=== PATIENT | male | born 1950 | race African-American/Black ===

== ENCOUNTER → 2017-07-02 | Outpatient (CLI) | payer MEDICARE, MEDICAID ==
--- NOTE | 2017-07-02 12:47 | RADIOLOGY REPORT (SQ) ---
EXAM DESCRIPTION: CERV SP 4 OR 5 VIEWS COMPLETED DATE/TIME: 07/02/2017 11:23 am REASON FOR STUDY: CERVICALGIA (M54.2) M54.2 CERVICALGIA M54.5 LOW BACK PAIN COMPARISON: None. NUMBER OF VIEWS: Five views. TECHNIQUE: AP, lateral, obliques and odontoid radiographic images acquired of the cervical spine. LIMITATIONS: None. FINDINGS: MINERALIZATION: Normal. ALIGNMENT: There is slight reversal of the normal curve in the upper cervical spine. VERTEBRAE: Vertebral bodies of normal height. DISCS: Disc spaces are narrowed throughout the cervical spine. Anterior osteophytes are seen from C4 to C6. Small posterior osteophytes are present at C5. FORAMINA: No osteophytes or foraminal narrowing. LATERAL AND POSTERIOR ELEMENTS: Facets, lateral masses and spinous processes without significant find ings. HARDWARE: None in the spine. SOFT TISSUES: No masses or calcifications. Lung apices clear. OTHER: No other significant finding. IMPRESSION: 1. There is slight reversal of the normal cervical lordosis. 2. Multilevel degenerative disc disease and spondylosis. TECHNICAL DOCUMENTATION: JOB ID: [id number] [employer]- All Rights Reserved
--- NOTE | 2017-07-02 13:03 | RADIOLOGY REPORT (SQ) ---
EXAM DESCRIPTION: L SPINE WHOLE COMPLETED DATE/TIME: 07/02/2017 11:23 am REASON FOR STUDY: LOW BACK PAIN (M54.5) M54.2 CERVICALGIA M54.5 LOW BACK PAIN COMPARISON: None. NUMBER OF VIEWS: Five views including obliques. TECHNIQUE: AP, lateral, oblique, and sacral radiographic images acquired of the lumbar spine. LIMITATIONS: None. FINDINGS: MINERALIZATION: Normal. SEGMENTATION: Normal. No transitional anatomy. ALIGNMENT: Normal. VERTEBRAE: Maintained height. No fracture or worrisome bone lesion. DISCS: There is mild narrowing at L4-5 and there is narrowing at L5- S1. Marginal osteophytes are pr esent. POSTERIOR ELEMENTS: Hypertrophic facet changes are present at L5-S1. HARDWARE: None in the spine. PARASPINAL SOFT TISSUES: Normal. PELVIS: Intact as visualized. No fractures or worrisome bone lesions. SI joints intact. OTHER: No other significant finding. IMPRESSION: Degenerative disc disease, spondylosis, and facet arthropathy. TECHNICAL DOCUMENTATION: JOB ID: [id number] [employer]- All Rights Reserved
== END ==
LOC: RAD 10:29
PROVIDERS: ATTEND Family Medicine
DX: M54.2 Cervicalgia (principal); M54.5 Low back pain
CPT/HCPCS: 72050; 72110

== ENCOUNTER 2017-08-03 18:24 | Emergency (ER) | payer MEDICARE, MEDICAID ==
[2017-08-03] MEDS ORDERED: IBUPROFEN 800 MG TABLET PO ONE (18:50)
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
[2017-08-03 19:00] VITALS: BP 140/90
== END 2017-08-03 19:19 | disposition home or self-care (01) ==
LOC: ER 18:24
DX: M54.5 Low back pain (principal); M54.6 Pain in thoracic spine; M25.512 Pain in left shoulder; G89.29 Other chronic pain; F17.210 Nicotine dependence, cigarettes, uncomplicated
CPT/HCPCS: 99283; A9270

== ENCOUNTER 2017-11-28 10:31 | Emergency (ER) | payer MEDICARE, MEDICAID ==
[2017-11-28 10:41] VITALS: BP 148/96
[2017-11-28] MEDS ORDERED: IBUPROFEN 800 MG TABLET PO ONE (11:06)
--- NOTE | 2017-11-28 11:10 | ER Document Report ---
ED Extremity Problem, Lower - General Chief Complaint: Foot Pain Stated Complaint: TOE PAIN ON RIGHT FOOT Time Seen by Provider: 11/28/17 10:56 Mode of Arrival: Ambulatory Information source: Patient Notes: 67-year-old male presents to ED for complaint of right foot and toe pain. He has a corn on his great toe and his second toe of the right foot. Patient states he has had no injuries no changes he just has these corns that he would like cut off. I explained to the patient that we do not cut colons off in the emergency room. Also complained of low back pain that is chronic. TRAVEL OUTSIDE OF THE [place] IN LAST 30 DAYS: No - HPI Patient complains to provider of: Pain Location: Back, Great Toe, 2nd Toe Occurred: Other - Chronic Onset/Duration: Gradual - Chronic Quality of pain: Sharp Severity: Moderate Pain Level: 4 Context: Other - Corns on foot and chronic back pain Recent injury: No Associated symptoms: Painful ambulation Exacerbated by: Movement, Walking Relieved by: Nothing - Related Data Allergies/Adverse Reactions: No Known Allergies Allergy (Verified 08/03/17 18:28) Past Medical History - General Information source: Patient - Social History Smoking Status: Current Every Day Smoker Cigarette use (# per day): Yes - 5 cigarettes a day Chew tobacco use (# tins/day): No Smoking Education Provided: Yes - 4 minutes Frequency of alcohol use: Heavy - 2-3 drinks a day Drug Abuse: None Occupation: Disabled Lives with: Alone Family History: Reviewed & Not Pertinent, CAD, Hyperlipidemia, Hypertension. denies: None, Arthritis, COPD, CVA, DM, Malignancy, Thyroid Disfunction, Other Patient has suicidal ideation: No Patient has homicidal ideation: No - Past Medical History Cardiac Medical History: Reports: Hx Coronary Artery Disease, Hx Heart Attack - 2, Hx Hypercholesterolemia, Hx Hypertension Pulmonary Medical History: Reports: Hx Asthma, Hx COPD Neurological Medical History: Reports: None Endocrine Medical History: Reports: None Renal/ Medical History: Reports: None Malignancy Medical History: Reports None GI Medical History: Reports: Hx Gastroesophageal Reflux Disease Musculoskeltal Medical History: Reports Hx Arthritis - osteoarthritis pelvis and thigh, Reports Hx Musculoskeletal Deformity, Reports Hx Musculoskeletal Trauma Skin Medical History: Reports None Psychiatric Medical History: Reports: Hx Anxiety, Hx Depression Traumatic Medical History: Reports: None Infectious Medical History: Reports: None Surgical Hx: Negative Past Surgical History: Reports: Hx Cardiac Catheterization - stent placed ? May 2012, Hx Coronary Stent - Immunizations Immunizations up to date: No Hx Diphtheria, Pertussis, Tetanus Vaccination: Yes Review of Systems - Review of Systems Constitutional: No symptoms reported EENT: No symptoms reported Cardiovascular: No symptoms reported Respiratory: No symptoms reported Gastrointestinal: No symptoms reported Genitourinary: No symptoms reported Male Genitourinary: No symptoms reported Musculoskeletal: Back pain, Muscle pain, Muscle stiffness Skin: Other - Somis to right great toe and second toe Hematologic/Lymphatic: No symptoms reported Neurological/Psychological: No symptoms reported Physical Exam - Vital signs Vitals: Temp Pulse Resp BP Pulse Ox 97.7 F 76 16 148/96 H 97 11/28/17 10:40 11/28/17 10:40 11/28/17 10:40 11/28/17 10:40 11/28/17 10:40 Interpretation: Normal - General General appearance: Appears well, Alert - HEENT Head: Normocephalic, Atraumatic Eyes: Normal Pupils: PERRL - Respiratory Respiratory status: No respiratory distress Chest status: Nontender Breath sounds: Normal Chest palpation: Normal - Cardiovascular Rhythm: Regular Heart sounds: Normal auscultation Murmur: No - Abdominal Inspection: Normal Distension: No distension Bowel sounds: Normal Tenderness: Nontender Organomegaly: No organomegaly - Back Back: Normal, Tender. No: Deformity/step-off, CVA tenderness, Vertebra tenderness, Scars, Scoliosis, Wounds - Extremities General upper extremity: Normal inspection, Nontender, Normal color, Normal ROM , Normal temperature General lower extremity: Normal color, Normal ROM, Normal temperature, Normal weight bearing. No: Charlotte's sign Foot: Tender - Somis to great toe and second toe, No evidence of FB. No: Abrasion, Deformity, Ecchymosis, Edema, Instability, Laceration, Metatarsal compress. pain, Nail injury, Navicular tenderness, Puncture wound, Tender 5th metatarsal, Unable to bear weight - Neurological Neuro grossly intact: Yes Cognition: Normal Orientation: AAOx4 [place] Coma Scale Eye Opening: Spontaneous Rodrigo Coma Scale Verbal: Oriented [place] Coma Scale Motor: Obeys Commands Rodrigo Coma Scale Total: 15 Speech: Normal Motor strength normal: LUE, RUE, LLE, RLE Sensory: Normal - Psychological Associated symptoms: Normal affect, Normal mood - Skin Skin Temperature: Warm Skin Moisture: Dry Skin Color: Normal Course - Re-evaluation Re-evalutation: 11/28/17 21:18 Patient instructed to follow-up with a director product development or primary doctor that corns are not cut off in the emergency room. Patient was given instructions on corns and treatment that he can do at home. After performing a Medical Screening Examination, I estimate there is LOW risk for EXPANDING OR RUPTURED ABDOMINAL AORTIC ANEURYSM, CAUDA EQUINA SYNDROME, EPIDURAL MASS LESION, or HERNIATED DISK CAUSING SEVERE SPINAL STENOSIS, thus I consider the discharge disposition reasonable. I have reevaluated this patient multiple times and no significant life threatening changes are noted. The patient and I have discussed the diagnosis and risks, and we agree with discharging home and close follow-up. We also discussed returning to the Emergency Department immediately if new or worsening symptoms occur with the understanding that symptoms and presentations can change. We have discussed the symptoms which are most concerning (e.g., saddle anesthesia, urinary or bowel incontinence or retention, changing or worsening pain) that necessitate immediate return. - Vital Signs Vital signs: Temp Pulse Resp BP Pulse Ox 97.7 F 76 16 148/96 H 97 11/28/17 10:40 11/28/17 10:40 11/28/17 10:40 11/28/17 10:40 11/28/17 10:40 Discharge - Discharge Clinical Impression: Pain, foot, right, chronic Back pain, chronic Qualifiers: Back pain location: low back pain Back pain laterality: bilateral Sciatica presence: without sciatica Qualified Code(s): M54.5 - Low back pain Hypertension Qualifiers: Hypertension type: unspecified Qualified Code(s): I10 - Essential (primary) hypertension Condition: Stable Disposition: HOME, SELF-CARE Instructions: Family Physicians / Practices, Use of Hpoi-Woi-Mprlvxw Ibuprofen ([facility]) Additional Instructions: LOW BACK PAIN: Three out of every four people will have an episode of disabling back pain during their lifetime. Most commonly the pain is due to straining of the muscles and ligaments in the low back. Usual treatment includes: (1) Rest on a firm surface. Avoid lying on your stomach. (2) Ice pack the painful area. After a few days, gentle heat may be used intermittently to relax the area, or ice packs can be continued. (3) Medication may be needed -- muscle relaxers and antiinflammatory medicines are commonly used. (4) As the back improves, exercises are prescribed to strengthen the back and abdominal muscles. Your doctor will advise you on the proper care for your back at each stage in your recovery. You may be better in a few days -- or healing may take several weeks. If new symptoms of a "herniated disc" (radiation of pain, numbness, or tingling down the back of the leg or weakness in the leg) occur, you should be re-examined. Further testing may be necessary. You were seen today for corn on the second toe your right foot. We do not remove corns from toes in the emergency room. You will need to follow-up with a director product development for the foot a primary doctor for your general pain and a back specialist for your back pain. I will give you a list of the local doctors a director product development and a back specialist. Acetaminophen Acetaminophen may be taken for pain relief or fever control. It's much safer than aspirin, offering a wider range of "safe" dosages. It is safe during . Some brand names are Tylenol, Panadol, Datril, Anacin 3, Tempra, and Liquiprin. Acetaminophen can be repeated every four hours. The following are maximum recommended dosages: WEIGHT Dose Drops Elixir Chewable( 80mg) (LBS.) drprs=droppers tsp=teaspoon 6 40 mg .4 ml (1/2) 6-11 80 mg .8 ml (full) 1/2 tsp 1 tab 12-16 120 mg 1 1/2 drprs 3/4 tsp 1 1/2 tabs 17-23 160 mg 2 drprs 1 tsp 2 tabs 24-30 240 mg 3 drprs 1 1/2 tsp 3 tabs 30-35 320 mg 2 tsp 4 tabs 36-41 360 mg 2 1/4 tsp 4 1 /2 tabs 42-47 400 mg 2 1/2 tsp 5 tabs 48-53 480 mg 3 tsp 6 tabs 54-59 520 mg 3 1/4 tsp 6 1 /2 tabs 60-64 560 mg 3 1/2 tsp 7 tabs 65-70 600 mg 3 3/4 tsp 7 1 /2 tabs 71-76 640 mg 4 tsp 8 tabs 77-82 720 mg 4 1/2 tsp 9 tabs 83-88 800 mg 5 tsp 10 tabs >89 pounds or adults 650 mg to 900 mg Acetaminophen can be repeated every four hours. Maximum daily dose not to exceed 4000 mg. These maximum recommended dosages are slightly higher than the dosages written on the product container, but these dosages are very safe and well below the toxic dosage for acetaminophen. ICE PACKS: Apply ice packs frequently against the painful area. Many different schedules are recommended, such as "20 minutes on, 20 minutes off" or "one hour ice, two hours rest." If you need to work, you may need to go longer between ice treatments. You should plan to have the area ice packed AT LEAST one fourth of the time. The ice should be applied over the wrap, tape, or splint, or over a layer of cloth -- not directly against the skin. Some ice bags have a built-in cloth and can be put directly on the skin. WARM PACKS: After approximately two days, apply gentle heat (such as a heating pad or hot water bottle) for about 20 to 30 minutes about every two hours -- at least four times daily. Warmth and elevation will help you make a more rapid recovery , and will ease the pain considerably. Do not use HOT heat, and never apply heat for longer than 30 minutes. The continuous heat can invisibly damage skin and muscles -- even when no burn is seen on the surface. Damaged muscles can make you MORE sore. Stretching Exercises for the Back The physician has recommended that you begin stretching exercises for your back. These are often used even while the back is painful. However, you should notify the physician if the activities seem to increase your pain. PELVIC TILT: Lie flat on your back with knees bent. Tighten your stomach and buttock muscles so it flattens your lower back against the floor. Hold 10 seconds. Repeat 10 times, twice daily. KNEE RAISE: Lying on the back with knees bent, raise one knee to your chest, then the other. Hold both knees against the chest 10 seconds, then lower one knee at a time. Repeat 10 times, twice daily. PARTIAL TRUNK RAISE: Lie face down, arms at your sides. Keeping your waist on the floor, use your arms raise your chest up. Support yourself on your elbows for 30 seconds. Repeat twice daily, increasing the time to two minutes as you recover. FOLLOW-UP CARE: If you have been referred to a physician for follow-up care, call the physician s office for an appointment as you were instructed or within the next two days. If you experience worsening or a significant change in your symptoms, notify the physician immediately or return to the Emergency Department at any time for re-evaluation. Forms: Smoking Cessation Education, Elevated Blood Pressure Referrals: PATRICIA CROUCH DPM [ACTIVE STAFF] - Follow up as needed BERENICE ROSA MD [ASSOCIATE] - Follow up as needed
== END 2017-11-28 11:18 | disposition home or self-care (01) ==
LOC: ER 10:31
DX: G89.29 Other chronic pain (principal); M79.671 Pain in right foot; M54.5 Low back pain; F17.210 Nicotine dependence, cigarettes, uncomplicated; I25.10 Atherosclerotic heart disease of native coronary artery without angina pectoris; E78.00 Pure hypercholesterolemia, unspecified; I10 Essential (primary) hypertension; I25.2 Old myocardial infarction
CPT/HCPCS: 99406; 99283; A9270

== ENCOUNTER 2018-05-26 23:41 | Emergency (ER) | payer MEDICARE, MEDICAID | END 2018-05-27 01:50 | disposition left against medical advice (07) | LOC: ER 23:41 | DX: Z53.21 Procedure and treatment not carried out due to patient leaving prior to being seen by health care provider (principal) ==

== ENCOUNTER 2018-10-24 18:23 | Observation (INO) | payer MEDICARE, MEDICAID ==
[2018-10-24 18:45] LABS: ABSOLUTE LYMPHOCYTES (AUTO) 0.6 10^3/uL (0.5-4.7); ABSOLUTE MONOCYTES (AUTO) 0.8 10^3/uL (0.1-1.4); ABSOLUTE NEUT (AUTO) 2.6 10^3/uL (1.7-8.2); BASOPHILS % (AUTO) 0.6 % (0-2); EOSINOPHILS % (AUTO) 0.1 % (0-6); HEMATOCRIT 39.7 % (37.9-51.0); HEMOGLOBIN 13.7 g/dL (13.5-17.0); LYMPHOCYTES % (AUTO) 13.8 % (13-45); MEAN CORPUSCULAR HEMOGLOBIN 35.2 pg (27.0-33.4); MEAN CORPUSCULAR HGB CONC 34.5 g/dL (32.0-36.0); MEAN CORPUSCULAR VOLUME 102 fl (80-97); MONOCYTES % (AUTO) 19.4 % (3-13); PLATELET COUNT 212 10^3/uL (150-450); RED BLOOD COUNT 3.89 10^6/uL (4.35-5.55); RED CELL DISTRIBUTION WIDTH 13.3 % (11.5-14.0); SEGMENTED NEUTROPHILS % (AUTO) 66.1 % (42-78); TOTAL CELLS COUNTED % (AUTO) 100 %
[2018-10-24] MEDS ORDERED: NITROGLYCERIN 0.4 MG/TAB 25 TAB/BOTTLE SL PRN ×2 (18:56→20:11)
--- NOTE | 2018-10-24 18:56 | ER Document Report ---
ED General - General Chief Complaint: Chest Pain Stated Complaint: CHEST PAIN Time Seen by Provider: 10/24/18 18:30 TRAVEL OUTSIDE OF THE [place] IN LAST 30 DAYS: No - HPI Notes: Patient is a 68-year-old male that presents to the emergency department for chief complaint of chest pain and shortness of breath. Patient presents by EMS. He states this morning he started having a heaviness in his chest. He states it feels like he is being squeezed from the front and back. He states he had acute onset of shortness of breath with it. EMS reported he appeared short of breath and diaphoretic upon their arrival. He did receive aspirin and nitro in route and states that made his symptoms significantly improve. He states they are not completely gone. He does have a history of NV with 2 coronary stents in the past. He states he stopped taking all of his medications a few years ago because he did not want to take medicine anymore. He has not had any of his hypertension or hyperlipidemia medications as well. Patient believes his last NV and stress test was in 2015. Past Medical History: Hypertension, hyperlipidemia, NV Past Surgical History: Coronary stenting x2 Social History: Daily tobacco, occasional marijuana, occasional alcohol Family History: Reviewed and noncontributory for presenting illness Allergies: Reviewed, see documented allergy list. REVIEW OF SYSTEMS: CONSTITUTIONAL : No fever No chills diaphoresis No recent illness EENT: No vision changes No congestion No sore throat CARDIOVASCULAR: chest pain No palpitations RESPIRATORY: shortness of breath No cough difficulty breathing GASTROINTESTINAL: No abdominal pain No nausea No vomiting No diarrhea GENITOURINARY: No dysuria No hematuria No difficulty urinating MUSCULOSKELETAL: No back pain No leg pain No arm pain SKIN: No rashes No lesions LYMPHATIC: No swollen, enlarged glands. NEUROLOGICAL: No lightheadedness No headache No weakness No paresthesias PSYCHIATRIC: No anxiety No depression PHYSICAL EXAMINATION: Vital signs reviewed, nursing noted reviewed. GENERAL: Well-appearing, well-nourished and in no acute distress. HEAD: Atraumatic, normocephalic. EYES: Eyes appear normal, extraocular movements intact, sclera anicteric, conjunctiva are normal. ENT: nares patent, oropharynx clear without exudates. Moist mucous membranes. NECK: Normal range of motion, supple without lymphadenopathy LUNGS: Breath sounds clear to auscultation bilaterally and equal. No wheezes rales or rhonchi. HEART: Regular rate and rhythm without murmurs ABDOMEN: Soft, nontender, normoactive bowel sounds. No rebound, guarding, or rigidity. No masses appreciated. EXTREMITIES: Nontender, good range of motion, no pitting or edema. NEUROLOGICAL: No focal neurological deficits. Moves all extremities spontaneously Motor and sensory grossly intact on exam. PSYCH: Normal mood, normal affect. SKIN: Warm, Dry, normal turgor, no rashes or lesions noted on exposed skin - Related Data Allergies/Adverse Reactions: lisinopril Allergy (Verified 10/24/18 18:33) Past Medical History - Social History Smoking Status: Current Every Day Smoker Drug Abuse: None Family History: Reviewed & Not Pertinent, CAD, Hyperlipidemia, Hypertension. denies: None, Arthritis, COPD, CVA, DM, Malignancy, Thyroid Disfunction, Other Patient has suicidal ideation: No Patient has homicidal ideation: No - Past Medical History Cardiac Medical History: Reports: Hx Coronary Artery Disease, Hx Heart Attack - 2, Hx Hypercholesterolemia, Hx Hypertension Pulmonary Medical History: Reports: Hx Asthma, Hx COPD Renal/ Medical History: Denies: Hx Peritoneal Dialysis GI Medical History: Reports: Hx Gastroesophageal Reflux Disease Musculoskeletal Medical History: Reports Hx Arthritis - osteoarthritis pelvis and thigh, Reports Hx Musculoskeletal Deformity, Reports Hx Musculoskeletal Trauma Psychiatric Medical History: Reports: Hx Anxiety, Hx Depression Past Surgical History: Reports: Hx Cardiac Catheterization - stent placed ? May 2012, Hx Coronary Stent - Immunizations Immunizations up to date: No Hx Diphtheria, Pertussis, Tetanus Vaccination: Yes Physical Exam - Vital signs Vitals: Temp Pulse Resp BP Pulse Ox 99.0 F 76 21 H 132/80 H 96 10/24/18 18:30 10/24/18 18:30 10/24/18 18:30 10/24/18 18:30 10/24/18 18:30 Course - Re-evaluation Re-evalutation: 10/24/18 18:54 Vitals reviewed. Nursing notes reviewed. Patient is afebrile, nontoxic and not diaphoretic upon my exam. He states he is feeling much better. He did have relief with one sublingual nitro and will be given another one in the emergency room. He received 125 mg Solu-Medrol as well as 324 mg aspirin by EMS prior to arrival. His EKG shows new lateral T wave inversions compared to 09/12/2015. 10/24/18 20:01 Patient reevaluated and is asymptomatic. I woke him up to do the evaluation and he states he was resting comfortably and his chest pain has not returned. His troponin is negative. The remainder of his workup is unremarkable. Plan to admit to the hospital for further cardiac monitoring and telemetry care. Patient's heart score is 6 Laboratory 10/24/18 10/24/18 10/24/18 18:12 18:12 18:12 WBC 4.0 RBC 3.89 L Hgb 13.7 Hct 39.7 MCV 102 H MCH 35.2 H MCHC 34.5 RDW 13.3 Plt Count 212 Seg Neutrophils % 66.1 Lymphocytes % 13.8 Monocytes % 19.4 H Eosinophils % 0.1 Basophils % 0.6 Absolute Neutrophils 2.6 Absolute Lymphocytes 0.6 Absolute Monocytes 0.8 Absolute Eosinophils 0.0 Absolute Basophils 0.0 Sodium 134.5 L Potassium 4.8 Chloride 97 L Carbon Dioxide 24 Anion Gap 14 BUN 14 Creatinine 1.33 H Est GFR ( Amer) > 60 Est GFR (Non-Af Amer) 53 L Glucose 88 Calcium 9.3 Total Bilirubin 0.8 Direct Bilirubin 0.3 Neonat Total Bilirubin Not Reportable Neonat Direct Bilirubin Not Reportable Neonat Indirect Bili Not Reportable AST 31 ALT 21 Alkaline Phosphatase 55 Creatine Kinase 107 CK-MB (CK-2) 1.10 Troponin I 0.013 Total Protein 7.8 Albumin 4.6 Chest X-Ray 10/24/18 18:25 IMPRESSION: NO ACUTE RADIOGRAPHIC FINDING IN THE CHEST. 10/24/18 20:[address] Pina who accepted admission. - Vital Signs Vital signs: Temp Pulse Resp BP Pulse Ox 99.0 F 76 13 134/67 H 94 10/24/18 18:30 10/24/18 18:30 10/24/18 19:46 10/24/18 19:46 10/24/18 19:46 - Laboratory Result Diagrams: 10/24/18 18:12 10/24/18 18:12 Laboratory results interpreted by me: 10/24/18 10/24/18 18:12 18:12 RBC 3.89 L MCV 102 H MCH 35.2 H Monocytes % 19.4 H Sodium 134.5 L Chloride 97 L Creatinine 1.33 H Est GFR (Non-Af Amer) 53 L - EKG Interpretation by Me Additional EKG results interpreted by me: 10/24/18 18:55 Interpreted by myself 1830: Normal sinus rhythm, rate 77, LVH, borderline QT prolongation, QTC 480, normal axis, no ectopy, T wave inversion in lead II, III, aVF, V4 through V6. No STEMI Discharge - Discharge Clinical Impression: Abnormal EKG Chest pain Qualifiers: Chest pain type: unspecified Qualified Code(s): R07.9 - Chest pain, unspecified Condition: Stable Disposition: ADMITTED OBSERVATION Admitting Provider: Hospitalist Unit Admitted: Telemetry
[2018-10-24 18:59] LABS: ALANINE AMINOTRANSFERASE 21 U/L (21-72); ALBUMIN 4.6 g/dL (3.5-5.0); ALKALINE PHOSPHATASE 55 U/L (38-126); ANION GAP 14 (5-19); ASPARTATE AMINO TRANSFERASE 31 U/L (17-59); BILIRUBIN,DIRECT 0.3 mg/dL (0.0-0.4); BILIRUBIN,TOTAL 0.8 mg/dL (0.2-1.3); BLOOD UREA NITROGEN 14 mg/dL (7-20); CALCIUM 9.3 mg/dL (8.4-10.2); CARBON DIOXIDE 24 mmol/L (22-30); CHLORIDE 97 mmol/L (98-107); CREATINE KINASE 107 U/L (55-170); GLUCOSE 88 mg/dL (75-110); POTASSIUM 4.8 mmol/L (3.6-5.0); SODIUM 134.5 mmol/L (137-145); TOTAL PROTEIN 7.8 g/dL (6.3-8.2)
[2018-10-24 19:10] LABS: CREATINE KINASE MB 1.1 ng/mL (<4.55); TROPONIN I 0.013 ng/mL
--- NOTE | 2018-10-24 19:15 | RADIOLOGY REPORT (SQ) ---
EXAM DESCRIPTION: CHEST SINGLE VIEW COMPLETED DATE/TIME: 10/24/2018 7:07 pm REASON FOR STUDY: cp COMPARISON: 09/12/2015 EXAM PARAMETERS: NUMBER OF VIEWS: One view. TECHNIQUE: Single frontal radiographic view of the chest acquired. RADIATION DOSE: NA LIMITATIONS: None. FINDINGS: LUNGS AND PLEURA: No opacities, masses or pneumothorax. No pleural effusion. MEDIASTINUM AND HILAR STRUCTURES: No masses. Contour normal. HEART AND VASCULAR STRUCTURES: Heart normal in size. Normal vasculature. BONES: No acute findings. HARDWARE: None in the chest. OTHER: No other significant finding. IMPRESSION: NO ACUTE RADIOGRAPHIC FINDING IN THE CHEST. TECHNICAL DOCUMENTATION: JOB ID: [id number] [employer]- All Rights Reserved Reading location - IP/workstation name: [email or web address]
[2018-10-24] MEDS ORDERED: NORMAL SALINE 1000 ML 1,000 ML IV ONE (19:24)
[2018-10-24] MEDS ORDERED: HYDRALAZINE HCL INJ/PF 20 MG/1 ML SDV IV PRN (20:11)
[2018-10-24] MEDS ORDERED: MAG HYDROX/AL HYDROX/SIMETH SUSP 30 ML UDCUP PO PRN (20:11)
[2018-10-24] MEDS ORDERED: LACTULOSE SYRUP 20 GM/30 ML UDCUP PO ONE (20:11)
[2018-10-24] MEDS ORDERED: ACETAMINOPHEN 325 MG TABLET PO PRN (20:11)
[2018-10-24] MEDS: CLOPIDOGREL BISULFATE 75 MG TABLET PO SCH (20:37)
[2018-10-24] MEDS: ISOSORBIDE MONONITRATE 30 MG TAB.ER.24H PO SCH (20:37)
[2018-10-24] MEDS: ASPIRIN 81 MG TABLET, CHEWABLE PO SCH (20:37)
--- NOTE | 2018-10-24 22:44 | EKG REPORT ---
SEVERITY:- ABNORMAL ECG - SINUS RHYTHM LVH WITH SECONDARY REPOLARIZATION ABNORMALITY BORDERLINE INFERIOR Q WAVES BORDERLINE PROLONGED QT INTERVAL : Confirmed by: Tim Limon MD 24-Oct-2018 22:44:35
[2018-10-25] MEDS: CYCLOBENZAPRINE HCL 10 MG TABLET PO PRN ×2 (02:04→09:21)
--- NOTE | 2018-10-25 04:58 | PDOC H&P ---
History of Present Illness Admission Date/PCP: 10/24/18 20:51 Patient complains of: Abdominal and chest pain History of Present Illness: DAVID HENRY is a 68 year old male with a past medical history of hypertension, dyslipidemia, coronary artery disease with stents x2 tobacco without current medication use presents with left lower quadrant abdominal pain and left lower chest pain worsened by deep breathing, change of position or exertion. Associated with nausea, shortness of breath but no palpitations. Patient denies recent change in medications admits to constipation. In the emergency room he has an unremarkable workup thus referred to the hospitalist for observation. He denies recent cardiac stress test Past Medical History Cardiac Medical History: Reports: Coronary Artery Disease, Myocardial Infarction - 2, Hyperlipidema, Hypertension Pulmonary Medical History: Reports: Asthma, Chronic Obstructive Pulmonary Disease (COPD) GI Medical History: Reports: Gastroesophageal Reflux Disease Musculoskeltal Medical History: Reports: Arthritis - osteoarthritis pelvis and thigh Psychiatric Medical History: Reports: Depression Past Surgical History Past Surgical History: Reports: Cardiac Catheterization - stent placed ? May 2012, Coronary Stent Social History Information Source: Patient, [facility] Records Lives with: Family Smoking Status: Current Every Day Smoker Cigarettes Packs Per Day: 0.5 Frequency of Alcohol Use: Occasional Hx Recreational Drug Use: No Drugs: None Hx Prescription Drug Abuse: No - Advance Directive Resuscitation Status: Full Code Family History Family History: CAD, Hyperlipidemia, Hypertension. denies: None, Arthritis, COPD, CVA, DM, Malignancy, Thyroid Disfunction, Other Parental Family History Reviewed: Yes Children Family History Reviewed: Yes Sibling(s) Family History Reviewed.: Yes Medication/Allergy Home Medications: Aspirin [Aspirin 81 mg Chewable Tablet] 81 mg PO DAILY 05/30/13 Clopidogrel Bisulfate [Plavix 75 Mg Tablet] 75 mg PO DAILY 05/30/13 Cyclobenzaprine HCl 10 mg PO Q12 PRN 05/30/13 Isosorbide Mononitrate [Isosorbide Mononitrate ER] 30 mg PO DAILY 05/30/13 Lisinopril 10 mg PO DAILY 05/30/13 Nitroglycerin [Nitrostat 0.4 mg (1/150 Gr) Tabs 25/Bottle] 1 tab SL Q5MP PRN 05/30/13 Omeprazole 40 mg PO DAILY 05/30/13 Oxycodone HCl/Acetaminophen [Oxycodone-Acetaminophen 10-325] PO Q8 PRN 05/30/13 Amoxicillin 875 mg PO BID #20 tablet 04/06/15 Antipyrine/Benzocaine [Antipyrine-Benzocaine Ear Drop] 4 drop AD Q4 #1 bottle 04/06/15 Ketorolac Tromethamine [Acular] 1 drop OS Q4 PRN #5 ml 05/18/16 Ibuprofen 800 mg PO Q8HP PRN #14 tablet 08/03/17 Allergies/Adverse Reactions: lisinopril Allergy (Verified 10/24/18 18:33) Review of Systems Constitutional: PRESENT: as per HPI. ABSENT: anorexia, chills, fatigue Eyes: ABSENT: visual disturbances Ears: ABSENT: hearing changes Cardiovascular: PRESENT: as per HPI, chest pain, dyspnea on exertion. ABSENT: edema, orthropnea, palpitations Respiratory: ABSENT: cough, hemoptysis Gastrointestinal: PRESENT: as per HPI, constipation, nausea. ABSENT: bloating, diarrhea Genitourinary: ABSENT: dysuria, hematuria Musculoskeletal: ABSENT: joint swelling Integumentary: ABSENT: rash, wounds Neurological: ABSENT: abnormal gait, abnormal speech, confusion, dizziness, focal weakness, syncope Psychiatric: ABSENT: anxiety, depression, homidical ideation, suicidal ideation Endocrine: ABSENT: cold intolerance, heat intolerance, polydipsia, polyuria Hematologic/Lymphatic: ABSENT: easy bleeding, easy bruising Physical Exam Vital Signs: Temp Pulse Resp BP Pulse Ox 99.0 F 67 15 141/78 H 95 10/24/18 18:30 10/25/18 02:00 10/25/18 00:00 10/24/18 21:31 10/25/18 00:10 Intake & Output 10/23/18 10/24/18 10/25/18 11:59 11:59 11:59 Intake Total 1000 Output Total 600 Balance 400 Weight 72.575 kg General appearance: PRESENT: no acute distress, well-developed, well-nourished Head exam: PRESENT: atraumatic, normocephalic Eye exam: PRESENT: conjunctiva pink, EOMI, PERRLA. ABSENT: scleral icterus Ear exam: PRESENT: normal external ear exam Mouth exam: PRESENT: moist, tongue midline Neck exam: ABSENT: carotid bruit, JVD, lymphadenopathy, thyromegaly Respiratory exam: PRESENT: clear to auscultation korin. ABSENT: accessory muscle use, crackles, rales, rhonchi, wheezes Cardiovascular exam: PRESENT: RRR, other - Reproducible chest wall pain. ABSENT: diastolic murmur, rubs, systolic murmur Pulses: PRESENT: normal dorsalis pedis pul Vascular exam: PRESENT: normal capillary refill GI/Abdominal exam: PRESENT: diminished bowel sounds, normal bowel sounds, soft, tenderness - Left lower quadrant without guarding. ABSENT: distended, guarding, mass, organolmegaly, rebound Rectal exam: PRESENT: deferred Extremities exam: PRESENT: full ROM. ABSENT: calf tenderness, clubbing, pedal edema Neurological exam: PRESENT: alert, awake, oriented to person, oriented to place, oriented to time, oriented to situation, CN II-XII grossly intact. ABSENT: motor sensory deficit Psychiatric exam: PRESENT: appropriate affect, normal mood. ABSENT: homicidal ideation, suicidal ideation Skin exam: PRESENT: dry, intact, warm. ABSENT: cyanosis, rash Results Laboratory Results: 10/24/18 18:12 10/24/18 18:12 10/24/18 10/24/18 18:12 18:12 WBC 4.0 RBC 3.89 L Hgb 13.7 Hct 39.7 MCV 102 H MCH 35.2 H MCHC 34.5 RDW 13.3 Plt Count 212 Seg Neutrophils % 66.1 Lymphocytes % 13.8 Monocytes % 19.4 H Eosinophils % 0.1 Basophils % 0.6 Absolute Neutrophils 2.6 Absolute Lymphocytes 0.6 Absolute Monocytes 0.8 Absolute Eosinophils 0.0 Absolute Basophils 0.0 Sodium 134.5 L Potassium 4.8 Chloride 97 L Carbon Dioxide 24 Anion Gap 14 BUN 14 Creatinine 1.33 H Est GFR ( Amer) > 60 Est GFR (Non-Af Amer) 53 L Glucose 88 Calcium 9.3 Total Bilirubin 0.8 AST 31 ALT 21 Alkaline Phosphatase 55 Total Protein 7.8 Albumin 4.6 10/24/18 10/24/18 10/24/18 18:12 18:12 21:57 Creatine Kinase 107 CK-MB (CK-2) 1.10 1.66 Troponin I 0.013 10/24/18 21:57 Creatine Kinase CK-MB (CK-2) Troponin I < 0.012 Impressions: Chest X-Ray 10/24/18 18:25 IMPRESSION: NO ACUTE RADIOGRAPHIC FINDING IN THE CHEST. Assessment & Plan - Diagnosis (1) Chest pain Qualifiers: Chest pain type: unspecified Qualified Code(s): R07.9 - Chest pain, unspecified Is this a current diagnosis for this admission?: Yes Plan: Atypical chest pain though the patient's pain is atypical there are multiple risk factors for coronary artery disease and subsequently will observe and evalu ation of acute coronary syndrome versus coronary artery disease with anginal equivalents. Cardiac monitoring blood pressure Q6 hours ,TSH, lipid profile, serial cardiac enzymes and cardiac stress test (2) Constipation Is this a current diagnosis for this admission?: Yes Plan: Lactulose enema (3) Hypertension Is this a current diagnosis for this admission?: Yes Plan: LEONEL inhibitor (4) Tobacco abuse Is this a current diagnosis for this admission?: Yes Plan: Tobacco Dependence patient received tobacco cessation counseling and offered nicotine replacement options - Time Time Spent: 30 to 50 Minutes
[2018-10-25 06:02] VITALS: BP 150/50
[2018-10-25] MEDS: CLOPIDOGREL BISULFATE 75 MG TABLET PO SCH (09:21)
[2018-10-25] MEDS: ASPIRIN 81 MG TABLET, CHEWABLE PO SCH (09:21)
[2018-10-25] MEDS: ISOSORBIDE MONONITRATE 30 MG TAB.ER.24H PO SCH (09:21)
[2018-10-25] MEDS ORDERED: PSYLLIUM SEED-SF 5.85 GM PACKET PO SCH (10:00)
--- NOTE | 2018-10-25 10:39 | PDOC DISCHARGE SUMMARY ---
General - Admit/Disc Date/PCP Admission Date/Primary Care Provider: 10/24/18 20:51 Discharge Date: 10/25/18 - Discharge Diagnosis (1) Chest pain Is this a current diagnosis for this admission?: Yes - Additional Information Resuscitation Status: Full Code Home Medications: Aspirin [Aspirin 81 mg Chewable Tablet] 81 mg PO DAILY 05/30/13 Clopidogrel Bisulfate [Plavix 75 Mg Tablet] 75 mg PO DAILY 05/30/13 Cyclobenzaprine HCl 10 mg PO Q12 PRN 05/30/13 Isosorbide Mononitrate [Isosorbide Mononitrate ER] 30 mg PO DAILY 05/30/13 Lisinopril 10 mg PO DAILY 05/30/13 Nitroglycerin [Nitrostat 0.4 mg (1/150 Gr) Tabs 25/Bottle] 1 tab SL Q5MP PRN 05/30/13 Omeprazole 40 mg PO DAILY 05/30/13 Oxycodone HCl/Acetaminophen [Oxycodone-Acetaminophen 10-325] PO Q8 PRN 05/30/13 Amoxicillin 875 mg PO BID #20 tablet 04/06/15 Antipyrine/Benzocaine [Antipyrine-Benzocaine Ear Drop] 4 drop AD Q4 #1 bottle 04/06/15 Ketorolac Tromethamine [Acular] 1 drop OS Q4 PRN #5 ml 05/18/16 Ibuprofen 800 mg PO Q8HP PRN #14 tablet 08/03/17 History of Present Illness History of Present Illness: Admitting hospitalist's H&P: DAVID HENRY is a 68 year old male with a past medical history of hypertension, dyslipidemia, coronary artery disease with stents x2 tobacco without current medication use presents with left lower quadrant abdominal pain and left lower chest pain worsened by deep breathing, change of position or exertion. Associated with nausea, shortness of breath but no palpitations. Patient denies recent change in medications admits to constipation. In the emergency room he has an unremarkable workup thus referred to the hospitalist for observation. He denies recent cardiac stress test. Hospital Course Hospital Course: THIS IS AN AMA NOTE. Mr. Henry is a 68 yr old male with CAD with 2 prior stenting who presented with chest pain. He was admitted to rule out ACS. He has been chest pain free since admission/ Denies SOB and is comfortable and saturating well on room air. He apparently refused further labs last night and refused a troponin check. He is scheduled supposedly for a stress testing tomorrow. He is AO x 4. 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 Explained the importance of checking another troponin level prior to his stress test here and he says he does not want any blood drawn from him, that he's "done with the pokes" and that he does not want to get a stress test here. I explained the importance of doing these labs and the importance of checking them but he is not receptive to staying here for another day. Explained the risks of going against medical advice including morbidity and risk of and he says he is leaving now. Physical Exam Vital Signs: Temp Pulse Resp BP Pulse Ox 98.1 F 69 19 150/50 H 98 10/25/18 00:20 10/25/18 07:00 10/25/18 00:20 10/25/18 00:20 10/25/18 00:20 Intake & Output 10/24/18 10/25/18 10/26/18 06:59 06:59 06:59 Intake Total 1000 Output Total 600 Balance 400 Weight 160 lb 0.889 oz General appearance: PRESENT: no acute distress, well-developed, well-nourished Head exam: PRESENT: atraumatic, normocephalic Eye exam: PRESENT: conjunctiva pink, EOMI, PERRLA. ABSENT: scleral icterus Ear exam: PRESENT: normal external ear exam Mouth exam: PRESENT: moist, tongue midline Neck exam: ABSENT: carotid bruit, JVD, lymphadenopathy, thyromegaly Respiratory exam: PRESENT: clear to auscultation korin. ABSENT: rales, rhonchi, wheezes Cardiovascular exam: PRESENT: RRR. ABSENT: diastolic murmur, rubs, systolic murmur Pulses: PRESENT: normal dorsalis pedis pul GI/Abdominal exam: PRESENT: normal bowel sounds, soft. ABSENT: distended, guarding, mass, organolmegaly, rebound, tenderness Rectal exam: PRESENT: deferred Neurological exam: PRESENT: alert, awake, oriented to person, oriented to place, oriented to time, oriented to situation, CN II-XII grossly intact. ABSENT: motor sensory deficit Results Laboratory Results: 10/24/18 18:12 10/24/18 18:12 10/24/18 10/24/18 18:12 18:12 WBC 4.0 RBC 3.89 L Hgb 13.7 Hct 39.7 MCV 102 H MCH 35.2 H MCHC 34.5 RDW 13.3 Plt Count 212 Seg Neutrophils % 66.1 Lymphocytes % 13.8 Monocytes % 19.4 H Eosinophils % 0.1 Basophils % 0.6 Absolute Neutrophils 2.6 Absolute Lymphocytes 0.6 Absolute Monocytes 0.8 Absolute Eosinophils 0.0 Absolute Basophils 0.0 Sodium 134.5 L Potassium 4.8 Chloride 97 L Carbon Dioxide 24 Anion Gap 14 BUN 14 Creatinine 1.33 H Est GFR ( Amer) > 60 Est GFR (Non-Af Amer) 53 L Glucose 88 Calcium 9.3 Total Bilirubin 0.8 AST 31 ALT 21 Alkaline Phosphatase 55 Total Protein 7.8 Albumin 4.6 10/24/18 10/24/18 10/24/18 18:12 18:12 21:57 Creatine Kinase 107 CK-MB (CK-2) 1.10 1.66 Troponin I 0.013 10/24/18 21:57 Creatine Kinase CK-MB (CK-2) Troponin I < 0.012 Impressions: Chest X-Ray 10/24/18 18:25 IMPRESSION: NO ACUTE RADIOGRAPHIC FINDING IN THE CHEST. Qualifiers - * PATIENT BEING DISCHARGED WITH ANY OF THE FOLLOWING DIAGNOSIS: No
== END 2018-10-25 10:58 | disposition left against medical advice (07) ==
LOC: ER 18:23 → EH 20:51 → 4N 10-25 00:31
PROVIDERS: ADMIT Internal Medicine; ATTEND Internal Medicine
DX: R07.89 Other chest pain (principal); I25.10 Atherosclerotic heart disease of native coronary artery without angina pectoris; K59.00 Constipation, unspecified; R10.32 Left lower quadrant pain; F17.210 Nicotine dependence, cigarettes, uncomplicated; I10 Essential (primary) hypertension; R11.0 Nausea; R06.02 Shortness of breath; R61 Generalized hyperhidrosis; E78.5 Hyperlipidemia, unspecified; R94.31 Abnormal electrocardiogram [ECG] [EKG]; I25.2 Old myocardial infarction; Z79.82 Long term (current) use of aspirin; Z79.899 Other long term (current) drug therapy; Z79.02 Long term (current) use of antithrombotics/antiplatelets; Z95.5 Presence of coronary angioplasty implant and graft; Z53.21 Procedure and treatment not carried out due to patient leaving prior to being seen by health care provider; Z82.49 Family history of ischemic heart disease and other diseases of the circulatory system
CPT/HCPCS: 93005; 99285; 36415; 82553; 82550; 85025; 80053; 84484; 71045; 93010; G0378 ×2; A9270 ×6; J3490; J7030